=== PATIENT | female | born 1985 | race Caucasian/White ===

== ENCOUNTER 2021-05-24 22:24 | Inpatient (IN) ==
[2021-05-25] MEDS ORDERED: OXYTOCIN 30 UNITS/500 ML BAG IV PRN ×3 (01:44→20:37)
[2021-05-25 02:10] LABS: Hematocrit (blood only) 39.4 % (37-47); Hemoglobin 13.3 g/dL (12.0-16.0); Mean Corpuscular Hemoglobin 30.6 pg (25-34); Mean Corpuscular Hgb Conc 33.8 g/dL (32-36); Mean Corpuscular Volume 90.8 fL (80-100); Mean Platelet Volume 9.5 fL (7.4-10.4); Platelet Count 269 K/uL (130-400); RDW Coefficient of Variation 13.7 % (11.5-14.5); RDW Standard Deviation 45.3 fL (36.4-46.3); Red Blood Count 4.34 M/uL (4.2-5.4); White Blood Count 16.17 K/uL (4.8-10.8)
[2021-05-25] MEDS: LACTATED RINGER'S 1,000 ML IV PRN ×3 (12:08→16:55)
[2021-05-25] MEDS ORDERED: ePHEDrine sulfate 50 MG/ML AMP ONE (12:13)
[2021-05-25] MEDS ORDERED: SODIUM CHLORIDE 0.9% INJ 10 ML VIAL ONE (12:14)
[2021-05-25] MEDS ORDERED: fentaNYL citrate 100 MCG/2 ML VIAL ONE (12:14)
[2021-05-25] MEDS ORDERED: BUPIVACAINE 0.25% 30 ML VIAL ONE (12:14)
[2021-05-25] MEDS ORDERED: fentaNYL 2MCG/ML ROPIVACAINE 1.25MG/ML 100 ML BAG EPI ONE (12:15)
--- NOTE | 2021-05-25 12:23 | Obstetrical Progress Note ---
Date of Service May 25, 2021 Assessment & Plan (1) : Plan: at term FHR; CAT1 Ctx irreg and mild VE; 4-5/50/-1 AROM - clear Pitocin augmentation Pt interested in epidural analgesia Admission and Anticipated Discharge Date Admission Date: May 25, 2021 Results & Data ([facility]) Vital Signs (Past 12 Hours) Vital Signs Temp Pulse Resp BP 05/25/21 12:11 36.7 C 81 114/64 05/25/21 12:08 18 05/25/21 10:32 85 112/67 05/25/21 10:30 36.8 C 20 05/25/21 07:09 36.7 C 78 16 109/62 05/25/21 05:50 76 18 114/69
[2021-05-25] MEDS ORDERED: ePHEDrine sulfate 50 MG/ML AMP IV PRN (12:30)
[2021-05-25] MEDS ORDERED: fentaNYL 2MCG/ML ROPIVACAINE 1.25MG/ML 100 ML BAG EPI PRN (12:30)
[2021-05-25] MEDS ORDERED: NALOXONE HCL 0.4 MG/1 ML VIAL/CARP IV PRN (12:30)
[2021-05-25] MEDS ORDERED: ONDANSETRON INJ 2 MG/ML 2 ML VIAL IV PRN (12:30)
[2021-05-25] MEDS ORDERED: NALOXONE HCL 1 MG in SODIUM CHLORIDE 0.9% 1000ML 1,000 ML IV PRN (12:30)
[2021-05-25] MEDS ORDERED: NALBUPHINE HCL INJ 10 MG/ML AMP IV PRN (12:30)
[2021-05-25] MEDS ORDERED: diphenhydrAMINE 50 MG/ML VIAL IV PRN (12:30)
--- NOTE | 2021-05-25 12:37 | Anesthesiology Consultation ---
Date of Service May 25, 2021 Assessment & Plan Chart Review Chart Review: Patient NOT seen in Pre Admission Testing and Acceptable Risk for Labor Epidural Consults Requested none ASA ASA2 Proposed Anesthesia Anesthesia Type: Labor Epidural and CSE Risk / Benefits Reviewed With: PT / POA / Parent / Guardian, Accepts Plan and Informed Consent Obtained History Height/Weight Height: 5 ft 3 in Weight: 78.925 kg Allergies Allergy/AdvReac Type Severity Reaction Status Date / Time No Known Allergies Allergy Verified 05/24/21 23:39 Medications Home Medications Medication Instructions Recorded Confirmed Last Taken vit no.95-ferrous 1 tab PO DAILY 05/24/21 05/24/21 05/24/21 fumarate 28 mg-folic acid 800 mcg tablet () Active Medications Generic Name Dose Route Start Last Admin Trade Name Freq PRN Reason Stop Dose Admin Lactated Ringer's 1,000 mls @ 125 mls/hr 05/25/21 01:44 05/25/21 12:08 Lr IV 05/27/21 01:43 999 mls/hr .Q8H PRN Administration L&D Protocol Protocol NPO Date Last Intake of Fluids: 05/25/21 Time Last Intake of Fluids: 11:00 Date Last Intake of Solids: 05/24/21 Time Last Intake of Solids: 17:00 Past Medical History Medical History Anxiety and depression no current meds Exercise / Class Metabolic Activity II 4-5 Yardwork/Stairs/Walk up hill Past Family History Family History Mother Hypertension Cancer Father Hypertension Past Surgical History Surgical History H/O knee surgery History of dental surgery Past Anesthesia History No Hx of Anesthesia Complications and No Family Hx of Anesthesia Complications History of PONV No Hx of PONV and No Hx of Motion Sickness Social History Smoking Status: Former smoker Hx Alcohol Use: No Hx Substance Use: No Review of Systems no chest pain or sob Physical Exam Vital Signs Last Vital Signs Temp 36.7 C 05/25/21 12:11 Pulse 96 H 05/25/21 12:29 Resp 18 05/25/21 12:08 BP 114/64 05/25/21 12:11 Pulse Ox 100 05/25/21 12:29 ENMT Mouth: no TMJ abnormality Thyromental Distance: > or= 3.5 Finger Breadths Mallampati Class: II Neck normal visual inspection Respiratory normal respiratory effort Auscultation: lungs clear to auscultation bilaterally Cardiovascular Rate/Rhythm: regular rate and regular rhythm Musculoskeletal Spine: normal cervical ROM Neurologic moves all extremities Psychiatric Orientation: alert and oriented x 3 Testing Laboratory Results 05/25/21 01:56
[2021-05-25] MEDS ORDERED: miSOPROStoL 200 MCG TAB PR ONE (20:37)
[2021-05-25] MEDS ORDERED: ACETAMINOPHEN 325 MG TAB PO PRN (20:37)
[2021-05-25] MEDS ORDERED: DIPHTHERIA/TETANUS/PERTUSSIS 0.5 ML SYR/VIAL IM ONE (20:37)
[2021-05-25] MEDS ORDERED: HYDROCORTISONE ACETATE 25 MG SUPP PR PRN (20:37)
[2021-05-25] MEDS ORDERED: BENZOCAINE 20% AER SPR 82.5 GM CAN EXT PRN (20:37)
[2021-05-25] MEDS ORDERED: IBUPROFEN 600 MG TAB PO PRN (20:37)
[2021-05-25] MEDS: DOCUSATE SODIUM 100 MG CAP PO SCH (22:34)
[2021-05-25 22:54] LABS: Base Excess Cord Arterial Bld -4.2 mEq/L (-9-1.8); Base Excess Cord Venous Blood -2.4 mEq/L (-7.7-1.9); CO2 Cord Arterial Blood 57 mmHg (39.1-73.5); Cord Venous Blood HCO3 23 mmol/L (18.4-26.8); Cord Venous Blood PCO2 42 mmHg (30.4-57.2); Cord Venous Blood PO2 25 mmHg (14.1-43.3); Cord Venous Blood pH 7.36 (7.20-7.44); HCO3 Cord Arterial Blood 24 mmol/L (19.7-28.5); Oxygen Sat Cord Arterial Blood < 60.0 % (<60); PO2 Cord Arterial Blood 21 mmHg (4.1-31.7); pH Cord Arterial Blood 7.24 (7.1-7.38)
[2021-05-25 22:55] LABS: O2 Saturation Cord Venous Bld < 60.0 % (<68)
[2021-05-26 06:14] LABS: Hematocrit (blood only) 35.1 % (37-47); Mean Corpuscular Hemoglobin 30.7 pg (25-34); Mean Corpuscular Hgb Conc 34.2 g/dL (32-36); Mean Corpuscular Volume 89.8 fL (80-100); Mean Platelet Volume 9.4 fL (7.4-10.4); Platelet Count 248 K/uL (130-400); RDW Coefficient of Variation 13.9 % (11.5-14.5); RDW Standard Deviation 45.3 fL (36.4-46.3); Red Blood Count 3.91 M/uL (4.2-5.4)
[2021-05-26] MEDS: DOCUSATE SODIUM 100 MG CAP PO SCH ×2 (08:03→20:24)
[2021-05-26] MEDS: PRENATAL VITAMIN 1 TAB PO SCH (08:03)
--- NOTE | 2021-05-26 08:03 | Obstetrical Progress Note ---
Date of Service May 26, 2021 Assessment & Plan Admission and Anticipated Discharge Date Admission Date: May 25, 2021 Subjective Patient is seen and examined. She feels well, no complaints. Ambulating without dizziness Voiding without difficulty Tolerating regular diet with out N&V Bleeding is minimal No fever/ chills/ CP/ SOB/ N&V/ Leg pain Breast feeding without problems Vital Signs Temp Pulse Pulse Resp BP BP Pulse Ox 05/26/21 07:07 36.5 C 84 18 100/64 97 05/26/21 03:15 36.8 C 74 16 101/64 95 05/25/21 23:10 36.6 C 96 H 16 115/71 94 05/25/21 22:45 37.1 C 18 05/25/21 22:44 100 H 106/53 L 05/25/21 22:29 104 H 116/56 L 05/25/21 22:14 80 115/56 L 05/25/21 22:00 99 H 137/58 L 05/25/21 21:45 87 164/72 H 05/25/21 21:30 86 112/61 05/25/21 21:15 82 106/56 L 05/25/21 21:01 98 H 128/67 05/25/21 20:44 97 H 115/68 05/25/21 20:27 101 H 113/66 05/25/21 20:24 100 H 97 05/25/21 20:19 106 H 97 05/25/21 20:14 97 H 99 05/25/21 20:13 82 102/56 L 05/25/21 20:09 87 99 05/25/21 20:04 101 H 99 Lab Results 05/25/21 05/25/21 05/25/21 Range/Units 01:50 01:56 20:26 WBC 16.17 H (4.8-10.8) K/uL RBC 4.34 (4.2-5.4) M/uL Hgb 13.3 (12.0-16.0) g/dL Hct 39.4 (37-47) % MCV 90.8 (80-100) fL MCH 30.6 (25-34) pg MCHC 33.8 (32-36) g/dL RDW Std Deviation 45.3 (36.4-46.3) fL RDW Coeff of Soumya 13.7 (11.5-14.5) % Plt Count 269 (130-400) K/uL MPV 9.5 (7.4-10.4) fL Cord ABG pH 7.24 (7.1-7.38) Cord ABG pCO2 57 (39.1-73.5) mmHg Cord ABG pO2 21 (4.1-31.7) mmHg Cord ABG HCO3 24 (19.7-28.5) mmol/L Cord ABG Base Excess -4.2 (-9-1.8) mEq/L Cord ABG O2 Sat < 60.0 (<60) % Cord VBG pH (7.20-7.44) Cord VBG pCO2 (30.4-57.2) mmHg Cord VBG pO2 (14.1-43.3) mmHg Cord VBG HCO3 (18.4-26.8) mmol/L Cord VBG Base Excess (-7.7-1.9) mEq/L Cord VBG O2 Sat (<68) % Barometric Pressure 731.6 mm/Hg Blood Gas Comments PACE SARS-CoV-2, RNA, NAAT NEGATIVE (NEGATIVE) 05/25/21 05/26/21 Range/Units 20:26 05:51 WBC 19.60 H (4.8-10.8) K/uL RBC 3.91 L (4.2-5.4) M/uL Hgb 12.0 (12.0-16.0) g/dL Hct 35.1 L (37-47) % MCV 89.8 (80-100) fL MCH 30.7 (25-34) pg MCHC 34.2 (32-36) g/dL RDW Std Deviation 45.3 (36.4-46.3) fL RDW Coeff of Soumya 13.9 (11.5-14.5) % Plt Count 248 (130-400) K/uL MPV 9.4 (7.4-10.4) fL Cord ABG pH (7.1-7.38) Cord ABG pCO2 (39.1-73.5) mmHg Cord ABG pO2 (4.1-31.7) mmHg Cord ABG HCO3 (19.7-28.5) mmol/L Cord ABG Base Excess (-9-1.8) mEq/L Cord ABG O2 Sat (<60) % Cord VBG pH 7.36 (7.20-7.44) Cord VBG pCO2 42 (30.4-57.2) mmHg Cord VBG pO2 25 (14.1-43.3) mmHg Cord VBG HCO3 23 (18.4-26.8) mmol/L Cord VBG Base Excess -2.4 (-7.7-1.9) mEq/L Cord VBG O2 Sat < 60.0 (<68) % Barometric Pressure 730.6 mm/Hg Blood Gas Comments PACE SARS-CoV-2, RNA, NAAT (NEGATIVE) PE: General: Alert, orientedx3, NAD Abd: soft, NT, fundus firm, below Umbilicus Perineum intact, Lochia rubra minimal Ext; NT, no edema AP: 35 yo s/p , ppd# 1 VSS Afebrile doing well CBC in am to check WBCC Continue routine care All questions were answered D/C home tomorrow Results & Data ([facility]) Vital Signs (Past 12 Hours) Vital Signs Temp Pulse Pulse Resp BP BP Pulse Ox 05/26/21 07:07 36.5 C 84 18 100/64 97 05/26/21 03:15 36.8 C 74 16 101/64 95 05/25/21 23:10 36.6 C 96 H 16 115/71 94 05/25/21 22:45 37.1 C 18 05/25/21 22:44 100 H 106/53 L 05/25/21 22:29 104 H 116/56 L 05/25/21 22:14 80 115/56 L 05/25/21 22:00 99 H 137/58 L 05/25/21 21:45 87 164/72 H 05/25/21 21:30 86 112/61 05/25/21 21:15 82 106/56 L 05/25/21 21:01 98 H 128/67 05/25/21 20:44 97 H 115/68 05/25/21 20:27 101 H 113/66 05/25/21 20:24 100 H 97 05/25/21 20:19 106 H 97 05/25/21 20:14 97 H 99 05/25/21 20:13 82 102/56 L 05/25/21 20:09 87 99 05/25/21 20:04 101 H 99
--- NOTE | 2021-05-26 08:15 | Delivery Summary ---
The patient delivered a live female in left occiput anterior presentation. There was terminal meconium. Infant was delivered and placed on mother's abdomen. Delayed cord clamp was performed af ter the infant was resuscitated on mother's abdomen. Infant's weight is pending, Apgars [address] blood and cord gases were obtained. Placenta was spontaneously delivered. This was sent to patho logy for pathological analysis. Placenta appeared to be grossly stained with meconium. Inspection of the perineum showed no laceration or tears. Rectal exam showed good sphincter tone. Estimated blood loss was 450 mL. Baby and mother are doing well. There was good hemostasis. All ins truments were removed from the vagina and accounted for x2 including sponges and retractors. Job ID: [id number]
--- NOTE | 2021-05-26 11:16 | Anesthesia Procedure Note ---
Date of Service May 26, 2021 Anesthesia Post Epidural Note Vital Signs Vital Signs: Temp Pulse Resp BP Pulse Ox 36.5 C 84 18 100/64 97 05/26/21 07:07 05/26/21 07:07 05/26/21 07:07 05/26/21 07:07 05/26/21 07:07 Pain Intensity Bilateral Lower Abdomen: Pain Intensity: 6 Back: Pain Intensity: 2 Notes Mental Status: alert / awake / arousable Nausea / Vomiting: adequately controlled Pain: adequately controlled Airway Patency, RR, SpO2: stable & adequate BP & HR: stable & adequate Hydration State: stable & adequate Neuraxial Anesthesia: was administered and sensory block is resolving Anesthetic Complications: no major complications apparent and Pt Satisfied with anesthetic care Epidural: Removed without complications and With tip intact
[2021-05-26] MEDS ORDERED: bisacodyL 5 MG TABEC PO SCH (20:00)
[2021-05-27] MEDS ORDERED: bisacodyL 10 MG SUPP PR PRN (06:00)
[2021-05-27 06:47] LABS: Basophils # (auto) 0.04 K/uL (0-0.2); Basophils % (auto) 0.4 %; Eosinophils # (auto) 0.21 K/uL (0-0.5); Eosinophils % (auto) 1.8 %; Hematocrit (blood only) 40.1 % (37-47); Hemoglobin 13.6 g/dL (12.0-16.0); Immature Granulocytes # (auto) 0.09 K/uL (0.00-0.02); Immature Granulocytes % (auto) 0.8 %; Lymphocytes # (auto) 3.01 K/uL (1.2-3.4); Lymphocytes % (auto) 26.4 %; Mean Corpuscular Hemoglobin 31.2 pg (25-34); Mean Corpuscular Hgb Conc 33.9 g/dL (32-36); Mean Platelet Volume 9.6 fL (7.4-10.4); Monocytes # (auto) 0.85 K/uL (0.11-0.59); Monocytes % (auto) 7.4 %; Neutrophils # (auto) 7.22 K/uL (1.4-6.5); Neutrophils % (auto) 63.2 %; Platelet Count 263 K/uL (130-400); RDW Coefficient of Variation 14.2 % (11.5-14.5); RDW Standard Deviation 47.8 fL (36.4-46.3); Red Blood Count 4.36 M/uL (4.2-5.4); White Blood Count 11.42 K/uL (4.8-10.8)
--- NOTE | 2021-05-27 07:23 | Obstetrical Progress Note ---
Date of Service May 27, 2021 Assessment & Plan (1) Normal course: Doing well, will discharge home today with f/u in clinic Continue routine PP course Subjective Ambulation: ambulating normally Voiding: no voiding problems Passing Gas:: Yes Diet Tolerance:: regular diet Lochia:: Small Feeding Type:: breast feeding Current Pain Level(1-10): 0 Doing well, wants to go home today Physical Exam Constitutional WD/WN, vitals as above Respiratory normal respiratory effort, lungs clear to auscultation Cardiovascular RRR, no murmur, no edema Gastrointestinal (Abdomen) normal bowel sounds, soft, nontender, no hepatosplenomegaly Results & Data ([facility]) Vital Signs (Past 12 Hours) Vital Signs Temp Pulse Resp BP Pulse Ox 05/27/21 00:05 36.4 C L 72 18 112/70 96 05/26/21 20:15 36.4 C L 75 16 100/65 97
[2021-05-27] MEDS: DOCUSATE SODIUM 100 MG CAP PO SCH (10:06)
[2021-05-27] MEDS: PRENATAL VITAMIN 1 TAB PO SCH (10:06)
== END 2021-05-27 11:35 | disposition home or self-care (01) | DRG 807 ==
LOC: OPB 22:24 → 4S1 22:30 → 4E1 05-25 23:45